=== PATIENT | female | born 1955 | race Caucasian/White ===

== ENCOUNTER → 2019-10-14 10:54 | Outpatient (BNVA) | payer MEDICARE, OTHER, SELFPAY | PROVIDERS: Family Provider Nurse Practitioner Family; PCP Nurse Practitioner Family; Visit Provider Nurse Practitioner Family | DX: M79.7 Fibromyalgia (principal); R53.82 Chronic fatigue, unspecified; E78.5 Hyperlipidemia, unspecified; R00.0 Tachycardia, unspecified; Z91.89 Other specified personal risk factors, not elsewhere classified; G47.30 Sleep apnea, unspecified; Z91.038 Other insect allergy status; M25.50 Pain in unspecified joint | CPT/HCPCS: 80053; 80061; 84443; 85025; 85651; 86003; 86140; 86757 ==

== ENCOUNTER → 2020-08-10 10:48 | Outpatient (BNVA) | payer MEDICARE, BC, SELFPAY | PROVIDERS: Family Provider Nurse Practitioner Family; PCP Nurse Practitioner Family; Visit Provider Nurse Practitioner Family | DX: E78.5 Hyperlipidemia, unspecified (principal); R00.0 Tachycardia, unspecified; K21.9 Gastro-esophageal reflux disease without esophagitis; Z12.11 Encounter for screening for malignant neoplasm of colon | CPT/HCPCS: 80053; 80061; 84443; 85025 ==

== ENCOUNTER → 2020-10-08 10:03 | Outpatient (BNVA) | payer MEDICARE, OTHER, SELFPAY | PROVIDERS: Family Provider Nurse Practitioner Family; PCP Nurse Practitioner Family; Visit Provider Nurse Practitioner | DX: B02.9 Zoster without complications (principal); E04.9 Nontoxic goiter, unspecified | CPT/HCPCS: 84439; 84481 ==

== ENCOUNTER 2020-10-22 11:23 | Outpatient (CLI) | payer MEDICARE, OTHER, SELFPAY ==
--- NOTE | 2020-10-22 13:30 | US_ITS ---
WS: [id number] THYROID ULTRASOUND HISTORY: E04.9 - Nontoxic goiter, unspecified COMPARISON: None available. Right lobe: 4.5 cm x 1.5 cm x 1.7 cm. Volume: 5.7 cm3. Normal size. Mild heterogeneity. No nodules or punctate foci identified. No mass. Left lobe: 4.5 cm x 1.5 cm x 1.8 cm. Volume: 6.5 cm3. Normal size with mild coarsened echotexture. No significant or dominant nodules are present. Isthmus: 0.5 cm. US/US thyroid [id number] IMPRESSION: Mildly heterogeneous gland with no suspicious nodules or enlargement.
== END 2020-10-22 11:24 | disposition home or self-care (01) ==
LOC: RAD 11:40
PROVIDERS: PCP Nurse Practitioner; Visit Provider Nurse Practitioner
DX: E04.9 Nontoxic goiter, unspecified (principal)
CPT/HCPCS: 76536

== ENCOUNTER → 2020-10-29 15:41 | Outpatient (BNVA) | payer MEDICARE, OTHER, SELFPAY | PROVIDERS: PCP Nurse Practitioner; Visit Provider Nurse Practitioner | DX: R73.9 Hyperglycemia, unspecified (principal) | CPT/HCPCS: 83036 ==

== ENCOUNTER 2021-03-17 09:41 | Outpatient (CLI) | payer MEDICARE, OTHER, SELFPAY ==
[2021-03-17 09:56] VITALS: BMI 32.0
--- NOTE | 2021-03-17 10:08 | ECG_ITS ---
[facility] Test Date: 2021-03-17 Pat Name: Darleen Thibodeaux Department: Room: Gender: Female Senior Communications Engineer: : 1955 Requested By: Viry Al Order Number: [id number] Jordyn MD: Viry Al M.D. Interpretive Statements NAME OF STUDY: EXERCISE SESTAMIBI STRESS TEST INDICATION: Chest Pain Baseline blood pressure of 134/79 mm Hg, heart rate 84 beats per minute and oxygen saturation of 97%. EKG showed normal sinus rhythm, normal axis with nonspecific T wave abnormality. The patient exercised for 4 minutes 47 seconds on a standard Gio protocol. Patient attained a maximum heart rate of 157 beats per minute(100% of the maximum predicted heart rate) with a blood pressure at the peak exercise of 188/67 mm Hg. The EKG at the peak exercise revealed sinus tachycardia with no significant ST-T wave changes. Patient did not have any chest pain or any significant arrhythmis with the exercise. The study was terminated due to exertional fatigue and attainment of target heart rate. During the recovery phase, there were no new changes. Blood pressure at the end of the recovery phase was 136/80 mm Hg with a heart rate of 103 beats per minute and oxygen saturation 98%. CONCLUSION: 1. Normal EKG response to treadmill exercise. 2. No exercise-induced chest pain or cardiac arrhythmia 3. Fair exercise tolerance, attained a maximum of 7 METs. Maximum VO2 of 24.5 mL/kg/min. 4. Baseline normal blood pressure with normal response to exercise. 5. Perfusion scan will be documented separately. Electronically Signed On 03-19-2021 13:13:31 CDT by Viry Al M.D. [id number]
--- NOTE | 2021-03-17 10:08 | NMCV_ITS ---
NM thalia perf SPECT r/s* [id number] Darleen Thibodeaux Age: 66 Gender: F : 1955 Exam Date: 03/17/2021 10:39 Ordering Phys: Viry Al MD ([email or web address]) Technologist: ANTONY Tejeda Exam Location: [facility] Indications: CHEST PAIN STRESS TEST Please see separate stress test report in [facility] for full findings IMAGE PROTOCOL Rest/Stress 1 Exercise Day Radiopharmaceutical Dose (mCi) Administration Site Administered by Rest: Tc-99m 10.7 IV ANTONY Butts Sestamibi Stress:Tc-99m 32.5 IV ANTONY Tejeda Sestamifani Rest: 17-Mar-2021 60 Discovery 630 Stress: 17-Mar-2021 15 Discovery 630 Radiopharmaceutical was injected at 95 % maximum heart rate. Images obtained in supine and prone position. SPECT RESULTS Technical Quality: Excellent Raw Data Analysis: Breast attenuation Image Corrections: No attenuation or motion correction applied Summed Stress Score: 0 Summed Rest Score: 0 Summed Difference Score: 0 PERFUSION FINDINGS Small size perfusion abnormality of mild severity of apical lateral wall on rest images with improved tracer uptake on stress images. This is suggestive of attenuation artifact. FUNCTIONAL RESULTS (calculated via Gated SPECT) Stress Image LV EF (%): 78 Stress EDV (mL):59 TID: 0.75 Stress ESV (mL):13 FUNCTIONAL FINDINGS: The left ventricle is normal in size. Transient Ischemia Dilatation of 0.75. There is normal left ventricular systolic function. There is normal left ventricular wall thickening with no regional wall motion abnormality. The left ventricular ejection fraction is normal with a value of 78%. Normal end-diastolic end-systolic volumes. IMPRESSIONS 1. Myocardial perfusion imaging is normal. Attenuation artifact noted in apical lateral wall. 2. Overall left ventricular systolic function is normal without regional wall motion abnormalities. 3. The left ventricular ejection fraction is normal with a value of 78%. 4. Scan indicates low risk for cardiac events. Viry Al MD (Electronically Signed) Final Date: 19 March 2021 14:10 S
[2021-03-17 12:02] VITALS: BP 136/80; PULSE 103
== END 2021-03-17 09:42 | disposition home or self-care (01) ==
LOC: CDL 09:45
PROVIDERS: PCP Nurse Practitioner; Visit Provider Internal Medicine Cardiovascular Disease
DX: R07.9 Chest pain, unspecified (principal)
CPT/HCPCS: 78452; 93017; A9500

== ENCOUNTER → 2021-04-14 10:56 | Outpatient (BNVA) | payer MEDICARE, SELFPAY | PROVIDERS: PCP Nurse Practitioner; Visit Provider Nurse Practitioner | DX: R07.89 Other chest pain (principal) | CPT/HCPCS: 71046 ==

== ENCOUNTER → 2021-09-03 11:12 | Outpatient (BNVA) | payer MEDICARE, SELFPAY | PROVIDERS: PCP Nurse Practitioner; Visit Provider Nurse Practitioner | DX: M25.561 Pain in right knee (principal); M79.7 Fibromyalgia; J30.89 Other allergic rhinitis; K21.9 Gastro-esophageal reflux disease without esophagitis; G43.109 Migraine with aura, not intractable, without status migrainosus; E78.5 Hyperlipidemia, unspecified | CPT/HCPCS: 80053; 80061; 84443 ==

== ENCOUNTER → 2021-09-08 08:41 | Outpatient (BNVA) | payer MEDICARE, SELFPAY | PROVIDERS: PCP Nurse Practitioner; Visit Provider Nurse Practitioner | DX: M25.561 Pain in right knee (principal) | CPT/HCPCS: 73562 ==

== ENCOUNTER → 2022-02-01 13:35 | Outpatient (BNVA) | payer MEDICARE, SELFPAY | PROVIDERS: PCP Nurse Practitioner; Visit Provider Nurse Practitioner | DX: J30.89 Other allergic rhinitis (principal); R05.9 Cough, unspecified | CPT/HCPCS: 71046; 85025; 87400 ==

== ENCOUNTER → 2022-11-22 09:13 | Outpatient (BNVA) | payer MEDICARE, SELFPAY | PROVIDERS: PCP Nurse Practitioner; Visit Provider Nurse Practitioner | DX: E78.5 Hyperlipidemia, unspecified (principal) | CPT/HCPCS: 80053; 80061; 85025 ==

== ENCOUNTER → 2023-03-20 14:01 | Outpatient (BNVA) | payer OTHER, SELFPAY | PROVIDERS: PCP Nurse Practitioner; Visit Provider Nurse Practitioner Family | DX: R30.0 Dysuria (principal); M54.50 Low back pain, unspecified; Z79.899 Other long term (current) drug therapy | CPT/HCPCS: 81000 ==

== ENCOUNTER 2023-03-21 10:36 | Outpatient (CLI) | payer OTHER, SELFPAY ==
--- NOTE | 2023-03-21 11:01 | XR_ITS ---
WS: [id number] EXAMINATION: XR lumbar spine 2-3V* [id number] L-SPINE : 3 views REASON FOR EXAM: M54.50 - Low back pain, unspecified COMPARISON: 11/17/2016 ORDER DATE: 03/21/2023 11:05 AM FINDINGS: The lumbar vertebral bodies and the disc spaces are normal in width with the exception of diffuse scl erotic change obliterating the disc space at L5-S1 possibly partial sacralization of L5. In the lumb ar vertebra, there is no evidence of compression deformities or spondylolisthesis. Prior cholecystect elliott surgical clips. Calcified uterine fibroid in the pelvic cavity. XR/XR lumbar spine 2-3V* [id number] IMPRESSION: No change from 11/17/2016.
== END 2023-03-21 10:37 | disposition home or self-care (01) ==
PROVIDERS: PCP Nurse Practitioner; Visit Provider Nurse Practitioner Family
DX: M54.50 Low back pain, unspecified (principal); V89.2XXA Person injured in unspecified motor-vehicle accident, traffic, initial encounter
CPT/HCPCS: 72100

== ENCOUNTER 2023-04-28 15:53 | Outpatient (CLI) | payer OTHER, MEDICARE, SELFPAY ==
--- NOTE | 2023-04-28 16:00 | CT_ITS ---
WS: [id number] CT LUMBAR SPINE, noncontrast. HISTORY: M54.50 - Low back pain, unspecified TECHNIQUE: Contiguous 2.0 mm axial imaging are performed. Sagittal and coronal reformats are submitte d and reviewed. All CT scans at [facility] use at least one of these dose optimization techni ques: automated exposure control; mA and/or kV adjustment per patient size (includes targeted exams w here dose is matched to clinical indication); or iterative reconstruction. IV contrast: None DLP: 610.05 mGy.cm COMPARISON: None available. Posterior lumbar alignment is normal. No fractures. Moderate disc space narrowing at L5-S1. Mild face t joint arthritis. No pars defects. L1-2: Normal. L2-3: Normal. L3-4: Mild annular disc bulge with a shallow central disc protrusion. Mild disc encroachment upon the subarticular recesses. Mild subarticular recess and bilateral foraminal stenosis. L4-5: Moderate annular disc bulging without significant stenosis. There is mild bilateral facet joint arthritis. Minimal encroachment upon the subarticular recesses and foramina. L5-S1: Very mild annular disc bulging with osteophytic ridging. Mild encroachment upon the ventral th ecal sac with facet joint arthritis. Mild to moderate bilateral foraminal narrowing predominantly due to osteophyte disease. Slightly greater on the RIGHT. Mild atherosclerosis abdominal aorta. Nonobstructing calcification RIGHT kidney. Small amount of dege nerative air in the SI joints. CT/CT lumbar spine wo con* [id number] IMPRESSION: 1. Mild to moderate bilateral foraminal stenosis at L5-S1 predominantly due to osteophyte disease. Slightly greater encroachment upon the RIGHT L5 nerve root . 2. Very mild subarticular recess and bilateral foraminal stenosis at L3-4 and L4-5. 3. No fractures.
== END 2023-04-28 15:54 | disposition home or self-care (01) ==
PROVIDERS: PCP Nurse Practitioner; Visit Provider Nurse Practitioner Family
DX: M48.061 Spinal stenosis, lumbar region without neurogenic claudication (principal); M54.50 Low back pain, unspecified
CPT/HCPCS: 72131

== ENCOUNTER → 2023-06-01 11:00 | Outpatient (BNVA) | payer OTHER, MEDICARE, SELFPAY | PROVIDERS: PCP Nurse Practitioner; Visit Provider Nurse Practitioner | DX: M79.7 Fibromyalgia (principal); E78.5 Hyperlipidemia, unspecified; E55.9 Vitamin D deficiency, unspecified | CPT/HCPCS: 80053; 80061; 82306; 82607 ==

== ENCOUNTER → 2023-11-16 10:55 | Outpatient (BNVA) | payer MEDICARE, OTHER, SELFPAY | PROVIDERS: PCP Nurse Practitioner; Visit Provider Nurse Practitioner | DX: J30.89 Other allergic rhinitis (principal); Z13.6 Encounter for screening for cardiovascular disorders; E55.9 Vitamin D deficiency, unspecified; E78.5 Hyperlipidemia, unspecified; R00.0 Tachycardia, unspecified; Z78.0 Asymptomatic menopausal state; M79.7 Fibromyalgia; K21.9 Gastro-esophageal reflux disease without esophagitis; Z79.899 Other long term (current) drug therapy | CPT/HCPCS: 80053; 80061; 82306; 84443; 85025; 86003 ==

== ENCOUNTER 2023-11-22 14:23 | Outpatient (CLI) | payer MEDICARE, SELFPAY ==
--- NOTE | 2023-11-22 15:00 | XR_ITS ---
WS: [id number] SCREENING DEXA SCAN UNATION CLINICAL INFORMATION: Z78.0 - Asymptomatic menopausal state COMPARISON: None. FINDINGS: The L1-L4 bone mineral density measures 0.986 g/cm2. This corresponds to a T score score of -1.6 and Z score of -0.7. Left femoral neck bone mineral density measures 0.870 g/cm2. This corresponds to a T score of -1.1 an d Z score of -0.3. Right femoral neck bone mineral density measures 0.850 g/cm2. This corresponds to a T score -1.3of an d Z score of -0.5. Mean femoral neck bone mineral density measures 0.860 g/cm2. This corresponds to a T score of -1.2 an d Z score of -0.4. IMPRESSION: Osteopenia lumbar spine. Osteopenia femoral necks. Patient's FRAX calculated 10 year probability for major osteoporotic fracture is 25.2% and osteoporot ic hip fracture is 5.5%.
--- NOTE | 2023-11-22 15:30 | MM_ITS ---
WS: [id number] BILATERAL 3D TOMOSYNTHESIS DIGITAL SCREENING MAMMOGRAPHY WITH CAD CLINICAL INFORMATION: Z12.31 - Encounter for screening mammogram for malignant ... HISTORY: Screening mammogram. No current complaints. COMPARISON: None. TECHNIQUE: Bilateral CC and MLO views. FINDINGS: Scattered fibroglandular densities bilaterally. No suspicious focal mass, asymmetry, calcifications, or architectural distortion. No evidence of malignancy. A few incidental punctate and lucent centered calcifications. Incidental cluster calcifications. IMPRESSION: MM/[place] [id number] BI-RADS: 2-Benign FOLLOW UP: 1 Year Follow-up Recommend return to annual screening mammography.
== END 2023-11-22 14:24 | disposition home or self-care (01) ==
LOC: RAD 14:24
PROVIDERS: PCP Nurse Practitioner; Visit Provider Nurse Practitioner
DX: Z12.31 Encounter for screening mammogram for malignant neoplasm of breast (principal); Z13.820 Encounter for screening for osteoporosis; R92.323 Mammographic fibroglandular density, bilateral breasts; Z78.0 Asymptomatic menopausal state; M85.852 Other specified disorders of bone density and structure, left thigh; M85.851 Other specified disorders of bone density and structure, right thigh; M85.88 Other specified disorders of bone density and structure, other site
CPT/HCPCS: 77063; 77067; 77080

== ENCOUNTER 2024-03-15 16:08 | Emergency (ER) | payer MEDICARE, SELFPAY ==
[2024-03-15 16:18] VITALS: RESP 16
[2024-03-15 17:36] VITALS: BP 117/73; PULSE 84; TEMP 36.8; O2SAT 94
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
[2024-03-15 20:26] VITALS: BP 115/76; PULSE 79; RESP 16; TEMP 36.8; O2SAT 95
== END 2024-03-15 20:01 | disposition home or self-care (01) ==
PROVIDERS: Emergency Provider Physician Assistant; PCP Nurse Practitioner
DX: S13.9XXA Sprain of joints and ligaments of unspecified parts of neck, initial encounter (principal); S20.219A Contusion of unspecified front wall of thorax, initial encounter; E78.5 Hyperlipidemia, unspecified; V59.50XA Passenger in pick-up truck or van injured in collision with unspecified motor vehicles in traffic accident, initial encounter
CPT/HCPCS: 71046; 72125; 99284

== ENCOUNTER → 2024-05-02 10:49 | Outpatient (BNVA) | payer MEDICARE, SELFPAY | PROVIDERS: PCP Nurse Practitioner; Visit Provider Nurse Practitioner | DX: E55.9 Vitamin D deficiency, unspecified (principal); E78.5 Hyperlipidemia, unspecified | CPT/HCPCS: 80053; 80061; 82306 ==

== ENCOUNTER → 2024-07-18 11:51 | Outpatient (BNVA) | payer MEDICARE, SELFPAY | PROVIDERS: PCP Nurse Practitioner; Visit Provider Nurse Practitioner | DX: E04.9 Nontoxic goiter, unspecified (principal); Z91.018 Allergy to other foods; R53.83 Other fatigue | CPT/HCPCS: 80053; 84443; 85025; 86003; 86008 ==

== ENCOUNTER 2024-08-13 08:30 | Outpatient (CLI) | payer MEDICARE, OTHER, SELFPAY ==
--- NOTE | 2024-08-13 08:30 | USCV_ITS ---
Darleen Thibodeaux Age: 69 Gender: F : 1955 Exam Date: 08/13/2024 08:43 Ordering Phys: Leena Cherry Technologist: Ex[place] [facility] [place]: tachycardia BP: 128 / 74 HR: 71 Rhythm: Sinus Technical Quality: Adequate MEASUREMENTS (Male / Female) Normal Values 2D ECHO LVOT Diameter 2.0 cm LV Ejection Fraction MOD 4C 66.4 % LV Ejection Fraction MOD 2C 61.4 % LV Ejection Fraction 2C AL 61.8 % LA Diameter 3.2 cm RA Systolic Volume 4C AL 34.8 ml RA Systolic Volume 4C MOD 33.4 ml LA Sys Volume AL 34.6 cm cubed LA Sys Volume Index AL 18.4 cm cubed/m squared Aorta at Sinotubular Diameter 2.4 cm IVC Diameter 1.8 cm M-MODE LA Ao Ratio MM 1.3 AV Cusp Separation MM 1.9 cm DOPPLER AV Peak Velocity 120.0 cm/s LVOT Peak Velocity 75.0 cm/s AV Area Cont Eq vti 2.2 cm squared AV Area Cont Eq pk 2.0 cm squared MV Peak Velocity 85.0 cm/s MV Area PHT 4.2 cm squared Mitral E to A Ratio 0.9 TV Peak Velocity 154.0 cm/s TR Peak Velocity 165.0 cm/s TR Peak Gradient 10.9 mmHg TV Peak E Velocity 66.0 cm/s Right Atrial Pressure 3.0 mmHg Pulmonary Artery Systolic Pressu 13.9 mmHg PV Peak Velocity 91.5 cm/s FINDINGS Left Ventricle Normal left ventricular size, systolic function and wall thickness, with no regional wall motion abnormalities. Left ventricular ejection fraction is estimated at 60 %. Grade I/IV diastolic dysfunction (abnormal relaxation filling pattern), normal to mildly elevated filling pressures. Right Ventricle The right ventricle is normal in size and function. Right Atrium The right atrium is normal in size. Left Atrium The left atrium is normal in size. Mitral Valve Structurally normal mitral valve without significant stenosis or prolapse. There is no mitral regurgitation. Aortic Valve Structurally normal aortic valve without significant sclerosis or stenosis. There is no aortic regurgitation. Tricuspid Valve Structurally normal tricuspid valve without significant stenosis or regurgitation. Pulmonary artery systolic pressure is normal. Pulmonic Valve Structurally normal pulmonic valve without significant stenosis. There is no pulmonic regurgitation. Pericardium Normal pericardium without effusion. Aorta Normal ascending aorta dimension. IVC The inferior vena cava appears normal. CONCLUSIONS CONCLUSIONS: 1. Normal left ventricular size, systolic function and wall thickness, with no regional wall motion abnormalities. Left ventricular ejection fraction is estimated at 64%. Normal left ventricular wall thickness. Normal diastolic filling pattern. 2. No significant chamber abnormalities. 3. No sigificant valve abnormalities. 4. There is no pericardial effusion. 5. There are no intracardiac masses. 6. Pulmonary artery systolic pressure is within normal limits. 7. Right atrial pressure is around 5 mm of mercury. 8. There are no prior echocardiogram studies to compare. Sumit Harrison MD (Electronically Signed) Final Date: 13 August 2024 19:09 S
== END 2024-08-13 08:31 | disposition home or self-care (01) ==
PROVIDERS: PCP Nurse Practitioner; Visit Provider Nurse Practitioner
DX: I50.30 Unspecified diastolic (congestive) heart failure (principal); R00.0 Tachycardia, unspecified; R53.83 Other fatigue
CPT/HCPCS: 93306

== ENCOUNTER → 2025-09-17 14:32 | Outpatient (BNVA) | payer MEDICARE, SELFPAY | PROVIDERS: PCP Nurse Practitioner; Visit Provider Nurse Practitioner | DX: E55.9 Vitamin D deficiency, unspecified (principal); E04.9 Nontoxic goiter, unspecified; E78.5 Hyperlipidemia, unspecified | CPT/HCPCS: 80053; 80061; 82306; 84443 ==